=== PATIENT | female | born 1960 | race Caucasian/White ===

== ENCOUNTER → 2019-07-13 | Outpatient (CLI) | payer BC ==
--- NOTE | 2019-07-13 13:32 | XR ---
EXAMINATION TYPE: XR cervical spine comp DATE OF EXAM: 07/13/2019 COMPARISON: NONE HISTORY: Pain TECHNIQUE: Four views are submitted. FINDINGS: The odontoid is intact. There are no compression deformities. The prevertebral soft tissue structur es are within normal limits. There is multilevel degenerative disc disease with most marked changes at C5-6 and especially C6-C7 with posterior spondylosis and anterior spurring. Severe loss of disc sp valery at C6-C7. Multilevel facet arthropathy. Nonspecific calcifications are seen anterior to the vertebral column. Foraminal encroachment particul july at C5-6 and C6-C7 on the left. IMPRESSION: 1. Multilevel degenerative disc disease with severe changes C6-C7. MRI recommended.
--- NOTE | 2019-07-13 14:06 | XR ---
EXAMINATION TYPE: XR shoulder complete BILAT DATE OF EXAM: 07/13/2019 COMPARISON: NONE HISTORY: Pain TECHNIQUE: Three views are submitted. FINDINGS: The osseous structures are intact. There is no acute fracture or dislocation. Arthropathy of the AC joints. IMPRESSION: 1. Bilateral AC joint arthropathy correlate with MRI as clinically warranted.
--- NOTE | 2019-07-14 10:13 | XR ---
Left foot HISTORY: Foot pain 3 views of the left foot Bone mineralization, joint spaces, alignment are maintained. There is a small plantar calcaneal spur. Small ossific density present at the dorsal aspect of the talar navicular joint is well-corticated a nd not felt likely to be acute. There is soft tissue swelling. IMPRESSION: No acute abnormality.
== END | disposition home or self-care (01) ==
LOC: RADXRMAIN 12:53
PROVIDERS: ATTEND Family Medicine
DX: M50.323 Other cervical disc degeneration at C6-C7 level (principal); M19.012 Primary osteoarthritis, left shoulder; M19.011 Primary osteoarthritis, right shoulder; M79.672 Pain in left foot
CPT/HCPCS: 72050

== ENCOUNTER → 2019-08-11 | Outpatient (CLI) | payer BC ==
--- NOTE | 2019-08-11 11:00 | MR ---
EXAMINATION TYPE: MR cervical spine wo con DATE OF EXAM: 08/11/2019 COMPARISON: Cervalgia HISTORY: Cervicalgia TECHNIQUE: Multiplanar, multisequence images of the cervical spine were acquired. C2-C3: Degenerative disc disease with hypertrophic change of the facets and mild uncovertebral joint hypertrophy. No canal stenosis or foraminal encroachment. C3-C4: Degenerative disc disease with uncovertebral joint hypertrophy and facet arthropathy. Mild rig ht-sided foraminal encroachment. No disc herniation or canal stenosis. C4-C5: Degenerative disc disease with broad-based central disc bulging. Mild effacement of thecal sac . Borderline Canal stenosis. Mild facet arthropathy and uncovertebral joint hypertrophy with no signi ficant foraminal encroachment. C5-C6: Degenerative disc disease with posterior disc protrusion capped by spur resulting in compressi on of the thecal sac and encroaching upon the anterior margin the spinal cord compatible with mild ca nal stenosis. Uncovertebral joint hypertrophy contributes to mild left-sided foraminal encroachment. Facet arthropathy noted. C6-C7: Degenerative disc disease with central disc protrusion. Mild bilateral foraminal encroachment and mild canal stenosis. C7-T1: No evidence for degenerative disc disease. No disc bulge/herniation or protrusion. No Canal stenosis. Foramina are patent bilaterally. Cervical segments are intact. There is normal alignment. Cervical spinal cord is of normal signal. Craniovertebral junction relationships are within normal limits. IMPRESSION: 1. Multilevel degenerative disc disease and foraminal encroachment as discussed above. 2. Disc protrusion or bulging at C4-5, C5-6 and C6-C7 results in canal stenosis.
== END | disposition home or self-care (01) ==
LOC: RADMRIMAIN 09:27
PROVIDERS: ATTEND Family Medicine
DX: M48.02 Spinal stenosis, cervical region (principal); M50.31 Other cervical disc degeneration, high cervical region
CPT/HCPCS: 72141

== ENCOUNTER 2019-10-25 06:00 | Day surgery (SDC) | payer BC ==
[2019-10-23 14:38] VITALS: BMI 30.7
--- NOTE | 2019-10-24 13:49 | HP ---
HISTORY AND PHYSICAL REASON FOR ADMISSION: Surgery 10/25/2019 HISTORY OF PRESENT ILLNESS: Sweta Walker is a 58-year-old patient who is seen with progressive left shoulder pain. We discussed options for treatment. She elected to proceed with arthroscopy. Consent was obtained. Medical clearance was provided by Dr. Galvez. PAST MEDICAL HISTORY: Coronary artery disease. PAST SURGICAL HISTORY: section. DAILY MEDICATIONS: 1. Ivania. 2. Flovent. 3. Ibuprofen. 4. ProAir. ALLERGIES: None. SOCIAL HISTORY: Smokes 1.5 packs of cigarettes daily. PHYSICAL EXAMINATION: Physical evaluation of the left shoulder: Flexion is 150 degrees. Abduction is 150 degrees. External rotation is 50 degrees with some pain and weakness. Tenderness along the anterolateral acromion and rotator cuff insertion site. Impingement sign is positive at 90 degrees. Drop arm sign is positive. Distal neurovascular exam is intact. RADIOGRAPHS: Radiographs of the left shoulder revealed acromioclavicular joint osteoarthritis. Left shoulder MRI revealed partial rotator cuff tear, partial biceps tendon tear. IMPRESSION: 1. Left shoulder impingement with rotator cuff tear. 2. Left shoulder partial long head biceps tendon tear. 3. Left shoulder acromioclavicular joint osteoarthritis. 4. Tobacco abuse. PLAN: Left shoulder arthroscopy with subacromial decompression, arthroscopic rotator cuff repair, Ben procedure, biceps tenotomy. Surgery 10/25/2019. MMODL / IJN: [id number] /
[~2019-10-25 06:00] MED LIST: DEXAMETHASONE SOD PHOSPHATE 10 MG/ML 1 ML VIAL IV ONE; HYDROmorphone 0.5 MG/0.5 ML SYRINGE IVP PRN; LACTATED RINGERS 1,000 ML IV SCH; LIDOCAINE 1% 20 ML VIAL (10MG/ML) FOR IV START INTRADERMA PRN; MIDAZOLAM 2 MG/2 ML VIAL IV PRN; ONDANSETRON 4 MG/2 ML VIAL IVP ONE; fentaNYL (PF) 50 MCG/ML 2 ML AMP IVP PRN
[2019-10-25] MEDS ORDERED: SCOPOLAMINE 1.5MG/72HR PATCH TRANSDERM ONE (06:40)
[2019-10-25] MEDS ORDERED: ROCURONIUM BROMIDE 10 MG/ML 10 ML VIAL IV ONE (07:26)
[2019-10-25] MEDS ORDERED: LIDOCAINE 1% INJ 10MG/ML (20 ML MDV) ONE (07:26)
[2019-10-25] MEDS ORDERED: DEXAMETHASONE SOD PHOSPHATE 4 MG/ML 1 ML VIAL ONE (07:26)
[2019-10-25] MEDS ORDERED: GLYCOPYRROLATE 0.2 MG/ML 2 ML VIAL ONE (07:26)
[2019-10-25] MEDS ORDERED: ROPIVACAINE 5 MG/ML 30 ML VIAL ONE (07:26)
[2019-10-25] MEDS ORDERED: SUCCINYLCHOLINE CHLORIDE 100 MG/5 ML SYR IV ONE (07:26)
[2019-10-25] MEDS ORDERED: ePHEDrine SULFATE/0.9% NACL/PF 50 MG/5 ML SYRINGE IV ONE (07:26)
[2019-10-25] MEDS ORDERED: PROPOFOL 10 MG/ML 20 ML VIAL IV ONE (07:26)
[2019-10-25] MEDS ORDERED: MIDAZOLAM 2 MG/2 ML VIAL ONE (07:26)
[2019-10-25] MEDS ORDERED: NEOSTIGMINE 1 MG/ML 10 ML VIAL ONE (07:26)
[2019-10-25 08:52] VITALS: TEMP 97.7
--- NOTE | 2019-10-25 08:55 | P.OP ---
Date of Procedure: 10/25/19 Preoperative Diagnosis: Left shoulder impingement Postoperative Diagnosis: 1. Left shoulder rotator cuff tear 2. Left shoulder impingement 3. Left shoulder acromioclavicular joint osteoarthritis 4. Left shoulder partial long head biceps tendon tear 5. Left shoulder superficial labral tear Procedure(s) Performed: 1. Left shoulder arthroscopic rotator cuff repair 2. Left shoulder arthroscopic subacromial decompression 3. Left shoulder arthroscopic Ben procedure 4. Left shoulder arthroscopic biceps tenotomy 5. Left shoulder arthroscopic debridement labral tear Implants: 14.75 Arthrex swivel lock anchor Anesthesia: GETA, regional (Interscalene block) Surgeon: Jensen Mercado Visitor Services Coordinator #1: Ashish Martin Estimated Blood Loss (ml): 7 Pathology: none sent Condition: stable Disposition: PACU Indications for Procedure: 58-year-old patient seen with progressive left shoulder pain. After having options regarding treatment discussed, she elected to proceed with arthroscopy. Operative Findings: See description of procedure Description of Procedure: Patient underwent an interscalene block by department of anesthesia for postoperative pain management. The patient was then taken to the operative suite. The patient underwent a general anesthetic by the department of anesthesia. The patient was placed into a lateral position and secured. There was appropriate padding of the bony prominence. Left shoulder was then prepped and draped in normal sterile orthopedic fashion. We placed the extremity in 10 pounds of longitudinal traction. A posterior incision was now made for a posterior working portal site. The trocar and cannula were inserted into the glenohumeral joint. Arthroscopy was initiated. Spinal needle was now inserted anteriorly, to ascertain the anterior working portal site. An incision was now made in that area, a trocar was inserted followed by a probe. There was some superficial tearing noted of the superior and anterior labrum. There was partial tearing of the biceps tendon. There was grade 1 chondromalacia changes of the glenohumeral joint. There was rotator cuff tear visualized from the glenohumeral side. I performed an arthroscopic biceps tenotomy. I debrided the superficial labral tears getting down to stable labral tissue. Residual labrum was probed and found to be stable. Instruments now removed from the glenohumeral joint. Utilizing the posterior working portal site, the trocar and cannula were inserted into the subacromial space. Arthroscopy initiated. I made an incision 2 fingerbreadths lateral to the acromion. I introduced my trocar followed by my ArthroCare ablator. I now began ablating thick subacromial bursal tissue, which exposed the undersurface of the anterior acromion. There was diminished subacromial space. There was a very prominent anterior acromion. A motorized bur was introduced and a subacromial decompression was performed. I also excised some osteophytes off the inferior aspect of the distal clavicle. The AC joint was visualized and noted to be fairly arthritic. The motorized bur was introduced in the anterior portal site and a Ben procedure was performed without difficulty, decompressing the AC joint nicely. I turned my attention to the rotator cuff. There was a 1.5 cm rotator cuff tear. I debrided the margins getting down to stable tendon tissue. I abraded the footprint with a motorized bur. I now with assistance of Federico CORBIN passed 2 everted mattress sutures through good bites of rotator cuff tendon. I now punched a hole at the footprint for insertion of an anchor. All 4 limbs of suture were passed through the eyelet of a 4.75 Arthrex swivel lock anchor. The eyelet was introduced into our pre-punch hole. I held in position while deyvi CORBIN tensioned the sutures were then deployed anchor. We noted good fixation of the anchor. All residual suture limbs were now clipped. We had good compression of the tendon along the entire footprint. I injected 1 mL Renyte intra-articular. Instruments now removed from the portal sites. All portal sites were approximated with nylon suture. Sterile dressings were applied followed by a emily sarkar sling. Ashish CORBIN assisted in this complex case. The patient was awakened, transferred to a bed, and taken to recovery in stable condition.
[2019-10-25 11:06] VITALS: BP 112/68; PULSE 66; RESP 18
--- NOTE | 2019-10-25 14:18 | P.ANPRN ---
Procedure Note - Anesthesia - Nerve Block Performed Left Interscalene Single Time Out Performed: Yes Date of Procedure: 10/25/19 Procedure Start Time: 06:58 Procedure Stop Time: 07:04 Location of Patient: PreOp Indication: Acute Post-Operative Pain, Requested by Surgeon Sedation Type: Sedate with meaningful contact maintained Preparation: Sterile Prep Position: Supine Needle Types: Pajunk Needle Gauge: 21 Ultrasound used to visualize needle placement: Yes Ultrasound used to observe medication spread: Yes Blood Aspirated: No Pain Paresthesia on Injection Noted: No Resistance on Injection: Normal Image Stored and Saved: Yes Events: Uneventful and Well Tolerated (ropi .5% 30cc plus dexamethasone 4mg)
== END 2019-10-25 11:00 | disposition home or self-care (01) ==
LOC: OR 06:00
PROVIDERS: ATTEND Orthopaedic Surgery
DX: M75.102 Unspecified rotator cuff tear or rupture of left shoulder, not specified as traumatic (principal); M75.42 Impingement syndrome of left shoulder; M19.012 Primary osteoarthritis, left shoulder; S43.432A Superior glenoid labrum lesion of left shoulder, initial encounter; S46.112A Strain of muscle, fascia and tendon of long head of biceps, left arm, initial encounter; M94.212 Chondromalacia, left shoulder; I25.10 Atherosclerotic heart disease of native coronary artery without angina pectoris; F17.210 Nicotine dependence, cigarettes, uncomplicated; F41.9 Anxiety disorder, unspecified; G43.909 Migraine, unspecified, not intractable, without status migrainosus; J45.909 Unspecified asthma, uncomplicated; Z79.1 Long term (current) use of non-steroidal anti-inflammatories (NSAID); Z79.899 Other long term (current) drug therapy
CPT/HCPCS: 64415; 76942; 29824; 29826; 29827; C1713 ×2; Q4212; J2250; J1100 ×2; J2710; J0690; J2405; J2001; J2795; J0330; J2704; J1170

== ENCOUNTER 2019-11-23 11:48 | Day surgery (SDC) | payer BC, OTHER ==
[2019-11-21 15:25] VITALS: BMI 32.5
--- NOTE | 2019-11-22 15:19 | HP ---
HISTORY AND PHYSICAL DATE OF SURGERY: 11/23/2019 Sweta Walker is a 59-year-old patient seen with symptomatic left carpal tunnel syndrome. We discussed options for treatment. She elected to proceed with decompression left median nerve. Consent regarding the procedure was obtained. PAST MEDICAL HISTORY: Asthma. PAST SURGICAL HISTORY: section, left shoulder arthroscopy. DAILY MEDICATIONS: Flovent, ProAir. ALLERGIES: None. SOCIAL HISTORY: She denies current tobacco use. PHYSICAL EVALUATION LEFT HAND: She has a positive carpal compression and carpal Tinel's causing numbness and tingling throughout the median nerve distribution. She is nontender along the A1 shaun sites. She has some decreased sensation throughout the median nerve distribution. She has good radial pulse and good perfusion distally. RADIOGRAPHS OF THE LEFT WRIST: Reveal some osteoarthritic changes. An EMG of the upper extremities revealed severe left carpal tunnel syndrome. IMPRESSION: 1. Left carpal tunnel syndrome. 2. Asthma. PLAN: Decompression of left median nerve. MMODL / IJN: [id number] /
[~2019-11-23 11:48] MED LIST changes: -MIDAZOLAM 2 MG/2 ML VIAL IV PRN; -fentaNYL (PF) 50 MCG/ML 2 ML AMP IVP PRN
[2019-11-23 12:44] VITALS: RESP 16; TEMP 98.7
[2019-11-23] MEDS ORDERED: fentaNYL (PF) 50 MCG/ML 2 ML AMP ONE (13:41)
[2019-11-23] MEDS ORDERED: KETAMINE 10 MG/ML 20 ML VIAL ONE (13:41)
[2019-11-23] MEDS ORDERED: MIDAZOLAM 2 MG/2 ML VIAL ONE (13:41)
[2019-11-23] MEDS ORDERED: PROPOFOL 10 MG/ML 20 ML VIAL IV ONE (13:41)
[2019-11-23] MEDS ORDERED: BUPIVACAINE (PF) 0.25% 30 ML VIAL SQ ONE (13:48)
--- NOTE | 2019-11-23 14:14 | P.OP ---
Date of Procedure: 11/23/19 Preoperative Diagnosis: Left carpal tunnel syndrome Postoperative Diagnosis: Left carpal tunnel syndrome Procedure(s) Performed: Decompression left median nerve Anesthesia: MAC, local Surgeon: Jensen Mercado Estimated Blood Loss (ml): 0 Pathology: none sent Condition: stable Disposition: PACU Indications for Procedure: 59-year-old patient seen with symptomatic left carpal tunnel syndrome. After treatment options were discussed, she elected to proceed with decompression left median nerve Operative Findings: See description of procedure Description of Procedure: The patient was taken to the operative suite. The patient received preoperative IV antibiotics. The patient underwent IV sedation by the department of anesthesia. A well-padded tourniquet was placed proximal left upper extremity. The left upper extremity was prepped and draped in the normal sterile orthopedic fashion. The proposed incision site was infiltrated with 10 mL quarter percent plain Marcaine. When sufficient local analgesia was noted the extremity was elevated and tourniquet insufflated to 250. An incision was now made beginning at the distal volar wrist crease extending distally approximately 3 cm in line with the fourth metacarpal sharply through skin. I dissected down through the palmar fascia to the transverse carpal ligament. I made a small incision centrally through the transcarpal ligament. I now completed my released proximally and distally with blunt Metzenbaums. There was good complete release of transcarpal ligament and decompression of median nerve. There was good hemostasis. The wound was irrigated. The skin margins were approximated nylon suture. Sterile dressings were applied. The tourniquet was released with immediate capillary refill to all digits noted. The patient was now awakened and transferred to recovery stable condition.
[2019-11-23 14:51] VITALS: BP 118/60; PULSE 73
== END 2019-11-23 15:26 | disposition home or self-care (01) ==
LOC: OR 11:48
PROVIDERS: ATTEND Orthopaedic Surgery
DX: G56.02 Carpal tunnel syndrome, left upper limb (principal); J45.909 Unspecified asthma, uncomplicated; Z79.899 Other long term (current) drug therapy
CPT/HCPCS: 64721; J2250; J1100; J0690; J2405; J3010; J2704